=== PATIENT | female | born 1985 | race Caucasian/White ===

== ENCOUNTER 2017-04-27 12:27 | Emergency (ER) | payer OTHER ==
[~2017-04-27 12:27] MED LIST: LAC PO; MAC100 PO; NORCO1 TA2 PO
[2017-04-27 13:44] VITALS: BP 110/69
== END 2017-04-27 13:44 | disposition home or self-care (01) ==
LOC: ED 12:27
DX: J01.90 Acute sinusitis, unspecified (principal)

== ENCOUNTER 2017-12-18 09:07 | Emergency (ER) | payer OTHER ==
[~2017-12-18] VITALS: Ht 165.1 cm; Wt 77.1 kg
[2017-12-18 09:24] VITALS: BP 120/69; Ht 165.1 cm; Wt 77.1 kg
== END 2017-12-18 12:29 | disposition home or self-care (01) ==
LOC: ED 09:07
DX: O26.891 Other specified pregnancy related conditions, first trimester (principal); N75.0 Cyst of Bartholin's gland; N75.1 Abscess of Bartholin's gland; Z3A.00 Weeks of gestation of pregnancy not specified
CPT/HCPCS: J2001

== ENCOUNTER 2018-03-31 01:59 | Emergency (ER) | payer OTHER ==
[~2018-03-31] VITALS: Ht 165.1 cm; Wt 77.1 kg
[2018-03-31 02:12] VITALS: Ht 165.1 cm; Wt 77.1 kg
[2018-03-31 09:07] VITALS: BP 105/62
== END 2018-03-31 09:07 | disposition home or self-care (01) ==
LOC: ED 01:59
DX: O23.592 Infection of other part of genital tract in pregnancy, second trimester (principal); Z3A.20 20 weeks gestation of pregnancy
CPT/HCPCS: J2001

== ENCOUNTER 2018-04-03 22:12 | Emergency (ER) | payer OTHER ==
[~2018-04-03] VITALS: Ht 165.1 cm; Wt 82.1 kg
[2018-04-03 22:25] VITALS: Ht 165.1 cm; Wt 82.1 kg
[2018-04-04 00:23] VITALS: BP 121/63
== END 2018-04-04 00:23 | disposition home or self-care (01) ==
LOC: ED 22:12
DX: N75.0 Cyst of Bartholin's gland (principal)
CPT/HCPCS: J3010

== ENCOUNTER 2018-09-25 01:39 | Emergency (ER) | payer OTHER ==
[~2018-09-25] VITALS: Ht 165.1 cm; Wt 85.3 kg
[2018-09-25 01:44] VITALS: Ht 165.1 cm; Wt 85.3 kg
[2018-09-25 05:21] VITALS: BP 124/70
== END 2018-09-25 05:21 | disposition home or self-care (01) ==
LOC: ED 01:39
DX: N76.4 Abscess of vulva (principal); N39.0 Urinary tract infection, site not specified; Z90.89 Acquired absence of other organs
CPT/HCPCS: J2001